=== PATIENT | female | born 1980 | race Caucasian/White ===

== ENCOUNTER 2017-04-26 19:49 | Emergency (ER) | payer OTHER ==
[2017-04-26] MEDS ORDERED: Ketorolac INJ* 30 MG/ML 1 ML VIAL IM ONE (21:30)
[2017-04-26] MEDS ORDERED: Dexamethasone IV* 4 MG/ML 1 ML (4 MG) IM ONE (21:30)
--- NOTE | 2017-04-26 21:30 | ED ---
Back Pain - HPI Summary HPI Summary: 37 female presents to ED with complaints of lower left sided back pain that has been ongoing for the past 3 weeks however, has worsened today and is now traveling down her left leg. Patient describes the pain as a burning and sharp pain. Took 1000mg of ibuprofen at 2pm today without relief. Has been seen by PCP and chiropractor for similar pain however, pain has not been as intense as today. Patient was taking muscle relaxer without relief. Has not had imaging. Denies urinary symptoms. No bladder/bowel incontinence, saddle anesthesia or diffuse weakness. Denies numbness. Admits to some tingling/burning sensation of left leg, from glute to left foot. Denies known trauma or injury other than becoming sore a few days after trying to lift out a cement post. Pain is worse with sitting, changing positions and better with laying. Patient has had acute low back pain on and off but nothing like this. No other complaints at this time. Denies nausea, vomiting and abdominal pain. Admits to PMHx of HTN that she currently takes lisinopril and is working with PCP for. - History of Current Complaint Chief Complaint: EDBackInjuryPain Stated Complaint: BACK PAIN Time Seen by Provider: 04/26/17 20:55 Hx Obtained From: Patient Hx Last Menstrual Period: 06/17/16 Onset/Duration: Sudden Onset Onset/Duration: Started Weeks Ago, Still Present, Worse Since Timing: Constant Back Pain Location: Is Discrete @ - left glute and left lower extremity Severity Initially: Moderate Severity Currently: Severe Pain Intensity: 9 Pain Scale Used: 0-10 Numeric Character: Sharp, Aching, Burning Aggravating Symptom(s): Movement Alleviating Symptom(s): Rest, Nothing Associated Signs And Symptoms: Positive: Tingling - burning, Pain with Weight Bearing. Negative: Swelling, Redness, Bruising, Weakness, Numbness, Bladder Incontinence, Bowel Incontinence - Risk Factors AAA Risk Factors: Hypertension TAD Risk Factors: Hypertension Cauda Equina Risk Factors: Negative Epidural Abscess Risk Factors: Negative - Allergies/Home Medications Allergies/Adverse Reactions: Allergies Allergy/AdvReac Type Severity Reaction Status Date / Time CT CONTRAST Allergy Hives Uncoded 07/05/16 17:14 PMH/Surg Hx/FS Hx/Imm Hx Endocrine/Hematology History: Denies: Hx Diabetes Cardiovascular History: Reports: Hx Hypertension - High blood pressure treated for 2 months. Denies: Hx Pacemaker/ICD History: Denies: Hx Renal Disease Musculoskeletal History: Denies: Hx Rheumatoid Arthritis, Hx Osteoporosis Sensory History: Denies: Hx Hearing Aid Psychiatric History: Denies: Hx Panic Disorder - Surgical History Surgery Procedure, Year, and Place: CARTILAGE REMOVED FROM RIGHT ANKLE 2002 - Immunization History Immunizations Up to Date: Yes Infectious Disease History: No Infectious Disease History: Denies: History Other Infectious Disease, Traveled Outside the [place] in Last 30 Days - Family History Known Family History: Positive: Hypertension, Diabetes Negative: Cardiac Disease Family History: Mother CA pancrease age 51. Father has HTN, no cardiac disease. - Social History Alcohol Use: Weekly Substance Use Type: Reports: None Smoking Status (MU): Never Smoked Tobacco Have You Smoked in the Last Year: No Review of Systems Constitutional: Negative Cardiovascular: Negative Respiratory: Negative Positive: Arthralgia, Myalgia - lower back Skin: Negative Positive: Paresthesia - tingling/burning down left LE All Other Systems Reviewed And Are Negative: Yes Physical Exam Triage Information Reviewed: Yes Vital Signs On Initial Exam: Initial Vitals Temp Pulse Resp BP Pulse Ox 98.4 F 103 18 192/118 99 04/26/17 19:51 04/26/17 19:51 04/26/17 19:51 04/26/17 19:51 04/26/17 19:51 elevated BP. patient diagnosed with HTN and did take medication today, however is in a lot of pain. improved on recheck 172/84 once pain subsided. still along with tachycardia 88bpm. told to follow up with pcp for recheck as she has been. probably associated with pain. is asymptomatic currently Vital Signs Reviewed: Yes Appearance: Positive: Well-Appearing, Well-Nourished, Pain Distress - moderate Skin: Positive: Warm, Skin Color Reflects Adequate Perfusion, Dry, Other - no edema, ecchymosis, erythema or obvious deformity, no crepitus or step off. Negative: Cold, Numb, Cyanosis @, Pale, Erythema @ Head/Face: Positive: Normal Head/Face Inspection Eyes: Positive: Conjunctiva Clear ENT: Positive: Hearing grossly normal Neck: Positive: Supple, Nontender Respiratory/Lung Sounds: Positive: Clear to Auscultation, Breath Sounds Present. Negative: Rales, Rhonchi, Wheezes Cardiovascular: Positive: Normal, RRR, Pulses are Symmetrical in both Upper and Lower Extremities - 2+ pedal b/l. Negative: Murmur, Rub Abdomen Description: Positive: Nontender, No Organomegaly, Soft. Negative: Bruit, CVA Tenderness (R), CVA Tenderness (L), Distended, Guarding, Peritoneal Signs, Pulsatile Mass Bowel Sounds: Positive: Present Musculoskeletal: Positive: Limited @ - with left LE flexion/extension due to pain, Pain @ - left glute discomfort with palpation, Other - rest of MSK exam normal. Negative: Interruption @, Edema Left, Edema Right Neurological: Positive: Normal, Sensory/Motor Intact - sensation intact, Alert, Oriented to Person Place, Time, CN Intact II-III, Reflexes Intact, NV Bundle Intact Distally, Normal Gait - limping and holding left side, due to pain but able - [place] Coma Scale Coma Scale Total: 15 Diagnostics - Vital Signs Vital Signs Temp Pulse Resp BP Pulse Ox 04/26/17 19:51 98.4 F 103 18 192/118 99 - Laboratory Lab Statement: Any lab studies that have been ordered have been reviewed, and results considered in the medical decision making process. - Radiology lumbosacral spine Xray Interpretation: No Acute Changes Radiology Interpretation Completed By: ED Physician - Dr Max and myself Re-Evaluation - Re-Evaluation First Eval Re-Evaluation Time: 22:58 Change: Improved - had some improvement, however just recieved medication, still uncomfortable, will recheck once medication has time to work Back Pain Course/Dx - Course Course Of Treatment: xray of lumbosacral spine obtained and negative for acute changes. appears by HPI and PE findings patient is experiencing sciatica versus piriformis syndrome verus lumbosacral radiculopathy. Given toradol, dexamethasone and norco. Had relief. Recommend to continue use of heat/ice. Rest. Stretches once pain improves. Physical therapy. Aware of worsening signs and symptoms to watch out for and return if occur. No concern for epidural abscess, AAA or cauda equina at this time. Follow up PCP. Continue NSAID, steroid and norco along with rest. - Diagnoses Differential Diagnosis/HQI/PQRI: Positive: Herniated Disc, Strain, Sprain, Other - sciatica, piriformis syndrome Provider Diagnoses: Sciatica Discharge - Discharge Plan Condition: Stable Disposition: HOME Prescriptions: HYDROcodone/ACETAMIN 5-325 MG* [[place] 5-325 TAB*] 1 tab PO Q6H PRN #12 tab MDD 3 PRN Reason: Pain predniSONE TAB* [Deltasone TAB*] 40 mg PO DAILY #10 tab Patient Education Materials: Sciatica (ED), Lumbar Radiculopathy (ED), Lower Back Exercises (ED) Referrals: Cathy Cates MD [Primary Care Provider] - Gadiel Fonseca MD [Medical Doctor] - Additional Instructions: Take prescribed medication as directed. Recommend taking prednisone in the morning. Supplement with ibuprofen as desired for pain, take with food. [place] for break through pain. Do not drive while taking this, only take as needed. Continue taking muscle relaxer at bedtime already prescribed to you. Heat/cool compresses. Stretches once pain/symptoms improve. Use pain as your guide. Continue physical therapy. Follow up with PCP.
[2017-04-26] MEDS ORDERED: HYDROcodone/ACETAMIN 5-325 MG* 1 TAB PO ONE (22:19)
[2017-04-26 23:56] VITALS: BP 172/84
--- NOTE | 2017-04-27 07:42 | RAD ---
HISTORY: Pain, sciatica, back pain COMPARISONS: None VIEWS: 5 , Frontal, lateral, coned-down lateral sacral, and bilateral oblique views of the lumbar spine. FINDINGS: ALIGNMENT: There is straightening of the lumbar lordosis VERTEBRAL BODIES: The vertebral body heights are normal. The interpedicular distances are normal. There is multilevel anterolateral marginal osteophyte formation most pronounced along the lower lumbar spine JOINTS: There is facet hypertrophic change at L4-L5 and L5-S1 INTERVERTEBRAL DISCS: There is diffuse loss of intervertebral disc height. SOFT TISSUE: Unremarkable. OTHER: The pelvis is unremarkable. The lung bases are clear. IMPRESSION: 1. STRAIGHTENING OF THE LUMBAR LORDOSIS. 2. DEGENERATIVE DISC DISEASE AND OSTEOARTHRITIS, MOST PRONOUNCED ALONG THE LOWER LUMBAR SPINE
== END 2017-04-26 22:52 | disposition home or self-care (01) ==
LOC: ED 19:49
DX: M54.32 Sciatica, left side (principal); M54.9 Dorsalgia, unspecified
CPT/HCPCS: 72110; 96372; 99282; J1100; J1885

== ENCOUNTER 2017-06-21 09:37 | Emergency (ER) | payer OTHER ==
--- NOTE | 2017-06-21 10:08 | UC ---
Respiratory Complaint HPI - HPI Summary HPI Summary: 37 y/o female presents to the urgent care c/o persistent productive cough for the past month. symptoms started with common cold. Now she has sinus pain green nasal discharge, B/L ear pressure and FLORES. pt denies fever, SOB, chest pain, abdominal pain, N/V/D. She has taking OTC meds to alleviate symptoms w/o any relief. Pt has PMHX HTN and has not taking her medication today. - History of Current Complaint Chief Complaint: UCGeneralIllness Stated Complaint: COUGH, CONGESTED Time Seen by Provider: 06/21/17 10:06 Hx Obtained From: Patient Hx Last Menstrual Period: IUD ?: No Onset/Duration: Gradual Onset, Lasting Weeks - 4 weeks, Still Present Timing: Constant Severity Initially: Mild Severity Currently: Moderate Pain Intensity: 6 Pain Scale Used: 0-10 Numeric Character: Cough: Productive Aggravating Factors: Recumbent Position Alleviating Factors: OTC Meds Associated Signs And Symptoms: Positive: Nasal Congestion, Sinus Discomfort. Negative: Fever - Risk Factors Pulmonary Embolism Risk Factors: Negative Cardiac Risk Factors: Negative Pseudomonas Risk Factors: Negative Tuberculosis Risk Factors: Negative - Allergies/Home Medications Allergies/Adverse Reactions: Allergies Allergy/AdvReac Type Severity Reaction Status Date / Time CT CONTRAST Allergy Hives Uncoded 06/21/17 09:52 PMH/Surg Hx/FS Hx/Imm Hx Previously Healthy: Yes Cardiovascular History: Hypertension - Surgical History Surgical History: Yes Surgery Procedure, Year, and Place: CARTILAGE REMOVED FROM RIGHT ANKLE 2002 - Family History Known Family History: Positive: Hypertension, Diabetes Negative: Cardiac Disease Family History: Mother [place] pancrease age 51. Father has HTN, no cardiac disease. - Social History Occupation: Employed Full-time Lives: With Family Alcohol Use: Rare Substance Use Type: None Smoking Status (MU): Never Smoked Tobacco Have You Smoked in the Last Year: No - Immunization History Most Recent Influenza Vaccination: 03/2017 Most Recent Tetanus Shot: UTD Review of Systems Constitutional: Negative Skin: Negative Eyes: Negative ENT: Ear Ache - B/L ear pressure, Nasal Discharge, Sinus Congestion, Sinus Pain/ Tenderness Respiratory: Cough Cardiovascular: Negative Gastrointestinal: Negative Genitourinary: Negative Motor: Negative Neurovascular: Negative Musculoskeletal: Negative Neurological: Headache Psychological: Negative Is Patient Immunocompromised?: No All Other Systems Reviewed And Are Negative: Yes Physical Exam Triage Information Reviewed: Yes Vital Signs: Initial Vital Signs Temp 97.9 F 06/21/17 09:49 Pulse 100 06/21/17 09:49 Resp 16 06/21/17 09:49 BP 172/106 06/21/17 09:49 Pulse Ox 100 06/21/17 09:49 - Additional Comments Vitals: reviewed General: Well developed, well-nourished obese female patient with NAD. Head and face: Normocephalic and atraumatic, Positive tenderness over the frontal and maxillary sinuses.. Eyes: PERRLA, EOMI x 2. Normal conjunctiva. No eye discharge. ENT: Ears and TM with normal limits. Nose: with yellowish discharge and erythematous mucosa. Pharynx with erythema , no exudate. Neck: Supple, no JVD, no carotid bruits and no lymphadenopathy. Lungs: clear, no rales, no rhonchi, no wheezes. CVS: RRR, S1 and S2 present no murmurs or gallops appreciated. Abdomen: soft nontender with positive bowel sounds. Extremities: no edema noted. Neuro: WNL. Skin: warm and dry UC Diagnostic Evaluation - Laboratory O2 Sat by Pulse Oximetry: 100 Respiratory Course/Dx - Course Course Of Treatment: 37 y/o female presents to the urgent care c/o persistent productive cough for the past month. symptoms started with common cold. Now she has sinus pain green nasal discharge, B/L ear pressure and FLORES. pt denies fever, SOB, chest pain, abdominal pain, N/V//D. She has taking OTC meds to alleviate symptoms w/o any relief. Pt has PMHX HTN and has not taking her medication today.Hx obtained.Pt with sinusitis on examination. Pt BP is elevated today. Pt Hx of HTN and has not taking Medication yet. Repeat BP with large BP cuff and decrease. Pt advised to decrease salt in her diet, monitor BP, be more compliant with her medications and f/u with PCP for further management.Pt with 1 month of symptoms getting worse. Pt Rx Amoxicillin PO and flonase nasal spray. Discharge instructions explained to Pt. Advised to Return to the clinic or PCP if symptoms do not improve.Pt understood and agreed with plan of care. - Differential Dx/Diagnosis Differential Diagnosis/HQI/PQRI: Asthma, Bronchitis, Laryngitis, Lower Resp Infection, Sinusitis Provider Diagnoses: 1- Acute bacterial sinusitis. 2- Uncontrolled HTN Discharge - Discharge Plan Condition: Stable Disposition: HOME Prescriptions: Amoxicillin/Clavulanate TAB* [Augmentin TAB 875*] 875 mg PO BID #20 tab Fluticasone NASAL SPRAY 50MCG* [Flonase NASAL SPRAY 50MCG*] 2 spray BOTH NARES DAILY #1 btl Patient Education Materials: Sinusitis (ED), Low Sodium Diet (ED) Referrals: Carlos Leger MD [Primary Care Provider] - If Needed Additional Instructions: 1- Please increase fluid intake and rest. take full course of antibiotic to avoid resistance 2-Use Flonase as directed to help drain fluid. Also buy saline drops to clear sinuses 3-Take Sudafed or Claritin PO OTC to alleviates sinus congestion 4-Return to the clinic or PCP if symptoms do not improve for further management and treatment 5- Your BP is elevated today, please decrease salt in your diet,monitor your BP andif it continues to be elevated please f/u with your PCP for further management
[2017-06-21 10:23] VITALS: BP 146/104
== END 2017-06-21 10:40 | disposition home or self-care (01) ==
LOC: UCEAST 09:37
DX: J01.90 Acute sinusitis, unspecified (principal); I10 Essential (primary) hypertension; Z91.041 Radiographic dye allergy status
CPT/HCPCS: 99212; G0463

== ENCOUNTER 2017-11-10 07:25 | Day surgery (SDC) | payer OTHER ==
[~2017-11-10 07:25] MED LIST: Buffered Lidocaine 0.9% SYRIN* 5 ML/SYR SYRINGE INTRADERM ONE; Famotidine TAB* 20 MG PO ONE; Metoclopramide TAB* 10 MG PO ONE
[2017-11-10] MEDS ORDERED: Metoclopramide TAB* 10 MG ONE (07:39)
[2017-11-10] MEDS ORDERED: Buffered Lidocaine 0.9% SYRIN* 5 ML/SYR SYRINGE ONE (07:39)
[2017-11-10] MEDS ORDERED: Famotidine TAB* 20 MG ONE (07:39)
[2017-11-10] MEDS ORDERED: Midazolam* 1 MG/ML 5 ML VIAL (5 MG) ONE (09:27)
[2017-11-10] MEDS ORDERED: Lidocaine 2% PF * 5 ML VIAL ONE (09:27)
[2017-11-10] MEDS ORDERED: Lidocain 1% EPI 1:100,000 * 30 ML MDV ONE (09:27)
[2017-11-10] MEDS ORDERED: Propofol* 10 MG/ML 20 ML BTL IV PUSH ONE (09:27)
[2017-11-10] MEDS ORDERED: fentaNYL* 50 MCG/ML 2 ML VIAL (100 MCG VIAL) ONE (09:27)
[2017-11-10] MEDS ORDERED: Dexamethasone IV* 4 MG/ML 1 ML (4 MG) ONE (09:27)
[2017-11-10] MEDS ORDERED: Lidocaine 4% TOPICAL* 50 ML TOP.SOLN ONE (09:27)
[2017-11-10] MEDS ORDERED: Oxymetazoline 0.05% NASAL SPR* 15 ML BTL ONE (09:27)
[2017-11-10] MEDS ORDERED: Ondansetron INJ* 2 MG/ML VIAL ONE (09:27)
[2017-11-10] MEDS ORDERED: Bacitracin OINTMENT* 0.5% 0.5 oz TUBE ONE (09:28)
[2017-11-10] MEDS ORDERED: fentaNYL* 50 MCG/ML 2 ML VIAL (100 MCG VIAL) IV PRN (09:40)
[2017-11-10] MEDS ORDERED: Naloxone* 0.4 MG/ML 1 ML VIAL IV PRN (09:40)
[2017-11-10] MEDS ORDERED: oxyCODONE/Acetamin 5/325 MG* TAB PO PRN (09:40)
[2017-11-10] MEDS ORDERED: Ondansetron INJ* 2 MG/ML VIAL IV PRN (09:40)
[2017-11-10] MEDS ORDERED: DiMENhydriNATE IV* 50 MG/ML VIAL IV PUSH PRN (09:40)
[2017-11-10] MEDS ORDERED: oxyCODONE/Acetamin 5/325 MG* TAB ONE (10:54)
[2017-11-10 11:08] VITALS: BP 188/112
--- NOTE | 2017-11-10 21:08 | OP ---
OPERATIVE REPORT: DATE OF OPERATION: 11/10/17 - [facility] DATE OF : 80 SURGEON: Soy Lal MD ANESTHESIOLOGIST: Guy Marmolejo MD ANESTHESIA: General. PRE-OP DIAGNOSIS: Chronic ethmoidal sinusitis. POST-OP DIAGNOSIS: Chronic ethmoidal sinusitis. OPERATIVE PROCEDURE: Bilateral functional endoscopic sinus surgery with maxillary antrostomies and anterior ethmoidectomies under general endotracheal anesthesia. COMPLICATIONS: None. DISPOSITION: Good. SPECIMEN: Left and right sinus contents. DESCRIPTION OF PROCEDURE: The patient was taken to the operating room, placed under supine position on the operating table. General anesthesia was induced and she was maintained with laryngeal mask airway anesthesia. Nose was packed bilaterally with cottonoids impregnated with oxymetazoline and 0.5% lidocaine. Using the endoscopes, the middle turbinate, uncinate process, anterior ethmoid bulla were injected with 1% lidocaine and 1:100,000 epinephrine. The middle turbinates were medialized. Using the curved seeker, the ostomy of the maxillary sinus was found. The back biter was used to make cuts on the uncinate process which was then debrided with the Blakesley's. The ostium was widened and debrided with the Blakesley's and through cuts. Anterior ethmoid was entered with a curette. This was done bilaterally. Stammberger Sinu-Foam was placed bilaterally. The patient tolerated this well with no complications, transferred to Recovery in stable condition. [id number]/[facility] #: [id number] MTDD
== END 2017-11-10 11:30 | disposition home or self-care (01) ==
LOC: OR 07:25
PROVIDERS: ATTEND Otolaryngology
DX: J32.2 Chronic ethmoidal sinusitis (principal); I10 Essential (primary) hypertension
CPT/HCPCS: 81025; 88305; A9270-GY; J1100; J2250; J2405; J2704; J3010

== ENCOUNTER 2018-12-09 08:43 | Day surgery (SDC) | payer OTHER ==
[~2018-12-09 08:43] MED LIST changes: -Buffered Lidocaine 0.9% SYRIN* 5 ML/SYR SYRINGE INTRADERM ONE; +Buffered Lidocaine 1% SYRIN* 1 ML/SYRINGE INTRADERM ONE; +Famotidine IV* 10 MG/ML 2 ML (20 mg) IV ONE; -Famotidine TAB* 20 MG PO ONE; +Lactated Ringers 1000 ML Bag* 1,000 ML IV SCH; -Metoclopramide TAB* 10 MG PO ONE
[2018-12-09] MEDS ORDERED: Famotidine IV* 10 MG/ML 2 ML (20 mg) ONE (09:37)
[2018-12-09] MEDS ORDERED: Buffered Lidocaine 1% SYRIN* 1 ML/SYRINGE INTRADERM ONE (09:37)
[2018-12-09] MEDS ORDERED: fentaNYL* 50 MCG/ML 2 ML VIAL (100 MCG VIAL) ONE (10:07)
[2018-12-09] MEDS ORDERED: Midazolam* 1 MG/ML 5 ML VIAL (5 MG) ONE (10:07)
[2018-12-09] MEDS ORDERED: Naloxone* 0.4 MG/ML 1 ML VIAL IV PRN (10:38)
[2018-12-09] MEDS ORDERED: DiMENhydriNATE IV* 50 MG/ML VIAL IV PUSH PRN (10:38)
[2018-12-09] MEDS ORDERED: HYDROmorphone INJ1* 1 MG/ML SYRINGE IV PRN (10:38)
[2018-12-09] MEDS ORDERED: oxyCODONE TAB* 5 MG TAB PO PRN (10:38)
[2018-12-09] MEDS ORDERED: Acetaminophen TAB* 325 MG PO PRN (10:38)
[2018-12-09] MEDS ORDERED: Dexamethasone IV* 4 MG/ML 1 ML (4 MG) ONE (11:11)
[2018-12-09] MEDS ORDERED: DiMENhydriNATE IV* 50 MG/ML VIAL ONE (11:11)
[2018-12-09] MEDS ORDERED: Propofol* 10 MG/ML 20 ML BTL ONE (11:11)
[2018-12-09] MEDS ORDERED: Ondansetron INJ* 2 MG/ML VIAL ONE (11:11)
[2018-12-09] MEDS ORDERED: Ketorolac INJ* 30 MG/ML 1 ML VIAL ONE (11:11)
[2018-12-09] MEDS ORDERED: Lidocaine 2% PF * 5 ML VIAL ONE (11:12)
[2018-12-09] MEDS ORDERED: Acetaminophen TAB* 325 MG ONE (12:17)
[2018-12-09 13:18] VITALS: BP 152/92
--- NOTE | 2018-12-09 16:49 | OP ---
OPERATIVE REPORT: DATE OF OPERATION: 12/09/18 DATE OF : 80 SURGEON: Gopi Campos MD. ANESTHESIOLOGIST: Dr. Lopez. ANESTHESIA: General endotracheal anesthesia. PRE-OP DIAGNOSIS: Embedded Mirena IUD. POST-OP DIAGNOSIS: Embedded Mirena IUD. OPERATIVE PROCEDURE: Dilation, hysteroscopy, hysteroscopic removal of embedded Mirena, and insertion of new Mirena IUD. FINDINGS: Midline cervix. Uterus sounds to 9.5. There was a small submucosal myoma, approximately 2 to 3 cm, visible on hysteroscopy. The IUD was in the uterus. The strings were towards the top of the IUD. No adnexal masses were palpated. COMPLICATIONS: None. COUNTS: Sponge count correct x2. CONDITION: The patient was brought to recovery room awake and in stable condition. DESCRIPTION OF PROCEDURE: The patient was brought to the operating room. When general anesthesia wa s found to be adequate, the patient was prepped and draped in the usual sterile fashion in the dorsal lithotomy position. Time-out was performed. Exam under anesthesia was performed with the above fin dings noted. Weighted speculum was placed in the vagina. The anterior lip of the cervix was grasped with a single-tooth tenaculum and the cervix was gently and easily dilated with graduated Hegar dilat ors. The hysteroscope was introduced. The IUD strings were visible towards the top of the IUD. The y were grasped with a grasper and the IUD was removed. The IUD was examined and found to be intact w ith both strings attached. The IUD was not sent to pathology. The hysteroscope was reintroduced. A submucosal fibroid was noted. The hysteroscope was removed. A new Mirena IUD was inserted without d ifficulty; however, upon removing the single-tooth tenaculum from the anterior lip of the cervix, bk t Mirena was inadvertently removed and so the single-tooth tenaculum was replaced on the cervix and a new Mirena was placed without difficulty. The strings were cut to approximately 3 to 4 cm in length . All instruments were removed from the vagina. Excellent hemostasis was observed. Then, the patient was brought to the recovery room awake and in stable condition. [id number]/[facility] #: [id number]
== END 2018-12-09 13:24 | disposition home or self-care (01) ==
LOC: OR 08:43
PROVIDERS: ATTEND Obstetrics & Gynecology
DX: T83.39XA Other mechanical complication of intrauterine contraceptive device, initial encounter (principal); I10 Essential (primary) hypertension; D25.0 Submucous leiomyoma of uterus; Z30.433 Encounter for removal and reinsertion of intrauterine contraceptive device
CPT/HCPCS: 81025; A9270-GY; J1100; J1240; J1885; J2250; J2405; J2704; J3010; J7300

== ENCOUNTER 2020-11-26 06:00 | Inpatient (IN) ==
[~2020-11-26 06:00] MED LIST changes: +Buffered Lidocaine 1% SYRIN 1 ml INTRADERM ONE; -Buffered Lidocaine 1% SYRIN* 1 ML/SYRINGE INTRADERM ONE; -Famotidine IV* 10 MG/ML 2 ML (20 mg) IV ONE; -Lactated Ringers 1000 ML Bag* 1,000 ML IV SCH; +Lactated Ringers 1000 ml BAG 1,000 ML IV SCH
[2020-11-26] MEDS ORDERED: ceFAZolin 2 GM PREMIX 2 GM/50 ML BAG ONE (06:18)
[2020-11-26] MEDS ORDERED: Heparin 5000 UNITS/ML 1 mL VIAL ONE (06:18)
[2020-11-26] MEDS ORDERED: ceFAZolin 1 GM ADVAN 1 GM ADDV.VIAL IVPB ONE (06:18)
[2020-11-26] MEDS ORDERED: Methylene Blue 0.5 % 50 MG/10 ML AMP IV ONE (07:05)
[2020-11-26] MEDS ORDERED: Propofol 10 MG/ML 20 ML BTL ONE (07:06)
[2020-11-26] MEDS ORDERED: Rocuronium 50 mg VIAL 10 mg/ml 5 ml VIAL (50 mg) ONE (07:06)
[2020-11-26] MEDS ORDERED: fentaNYL 250 mcg/5 ml 50 MCG/ML 5 ml VIAL (250 MCG) ONE (07:06)
[2020-11-26] MEDS ORDERED: Midazolam 2 mg/2 ml VIAL 1 mg/ml 2 ml VIAL (2 mg) ONE (07:06)
[2020-11-26] MEDS ORDERED: Lidocaine 2% PF 5 ML VIAL ONE (07:06)
[2020-11-26] MEDS ORDERED: EPHEDrine (Pressors) 50 MG/ML VIAL ONE (08:04)
[2020-11-26] MEDS ORDERED: Dexamethasone IV 4 MG/ML VIAL 1 ml VIAL ONE (08:04)
[2020-11-26] MEDS ORDERED: Ondansetron 4 mg VIAL 2 MG/ML 2 ml VIAL ONE (08:04)
[2020-11-26] MEDS ORDERED: diPHENhydraMINE IV 50 MG/ML 1 ml VIAL (BENADRYL) IV PRN (08:05)
[2020-11-26] MEDS ORDERED: Naloxone 0.4 mg VIAL 0.4 mg/ml 1 ml VIAL IV PRN (08:05)
[2020-11-26] MEDS ORDERED: HYDROmorphone 1 MG/1 ML SYRINGE ONE (08:38)
[2020-11-26] MEDS ORDERED: HYDROmorphone 0.5 MG/0.5 ML SYRINGE IV SLOW PU PRN (10:03)
[2020-11-26] MEDS ORDERED: HYDROcodone/ACET. 7.5/325 LIQ 15 ML UDC PO PRN (10:03)
[2020-11-26] MEDS ORDERED: HYDROmorphone 1 MG/1 ML SYRINGE IV SLOW PU PRN (10:03)
[2020-11-26] MEDS ORDERED: Ondansetron 4 mg VIAL 2 MG/ML 2 ml VIAL IV PRN (10:03)
[2020-11-26] MEDS ORDERED: fentaNYL 100 mcg/2 ml 50 MCG/ML VIAL ONE (10:16)
[2020-11-26] MEDS: fentaNYL 100 mcg/2 ml 50 MCG/ML VIAL IV PRN ×3 (10:17→10:58)
[2020-11-26] MEDS: Lactated Ringers 1000 ml BAG 1,000 ML IV SCH ×2 (11:18→19:45)
[2020-11-26] MEDS: Heparin 5000 UNITS/ML 1 mL VIAL SUBCUT SCH ×2 (14:01→21:35)
[2020-11-26] MEDS: Famotidine IV 10 MG/ML 2 ml VIAL (20 mg) IV SLOW PU SCH (21:37)
[2020-11-27] MEDS: Lactated Ringers 1000 ml BAG 1,000 ML IV SCH (02:31)
[2020-11-27] MEDS: Heparin 5000 UNITS/ML 1 mL VIAL SUBCUT SCH (05:27)
[2020-11-27 07:46] VITALS: BP 118/73
[2020-11-27] MEDS: Famotidine IV 10 MG/ML 2 ml VIAL (20 mg) IV SLOW PU SCH (08:00)
[2020-11-27] MEDS ORDERED: D5W 1/2 NS KCl 20 meq 1000 ml 1,000 ML IV SCH (11:00)
== END 2020-11-27 11:40 | disposition home or self-care (01) | DRG 621 ==
LOC: AA 06:00 → SSU 11:18
PROVIDERS: ADMIT Surgery; ATTEND Surgery